=== PATIENT | male | born 1995 | race Two or more races ===

== ENCOUNTER 2024-11-29 17:12 | Emergency (ER) | payer MEDICAID ==
[~2024-11-29] VITALS: Ht 180.3 cm; Wt 84.6 kg
[2024-11-29 17:19] VITALS: TEMP 98.8
[2024-11-29 18:18] LABS: BASOPHILS % (AUTO) 0.9 % (0.0-2.0); EOSINOPHILS % (AUTO) 1.2 % (1.0-6.0); HEMOGLOBIN 15.4 g/dL (13.5-17.5); LYMPHOCYTES # (AUTO) 1.4 K/uL (1.0-4.8); MEAN CORPUSCULAR HEMOGLOBIN 30.9 pg (26.0-34.0); MEAN CORPUSCULAR HGB CONC 33.6 G/dL (31.0-37.0); MEAN CORPUSCULAR VOLUME 92 fL (80-100); MONOCYTES # (AUTO) 0.4 K/uL (0.1-1.0); MONOCYTES % (AUTO) 8.1 % (2.0-9.0); NEUTROPHILS # (AUTO) 2.8 K/uL (1.8-7.7); NEUTROPHILS % (AUTO) 59.8 % (40.0-70.0); PLATELET COUNT (AUTO) 199 K/uL (150-450); RED BLOOD CELL COUNT(AUTO) 4.99 MIL/uL (4.50-5.90); RED CELL DISTRIBUTION WIDTH 13.3 % (11.5-14.5); WHITE BLOOD COUNT (AUTO) 4.6 K/uL (4.5-11.0)
[2024-11-29 18:23] LABS: ANION GAP 8 mmol/L (8-16); CALCIUM, TOTAL 8.7 mg/dL (8.8-10.5); CARBON DIOXIDE 29 mmol/L (22-29); CHLORIDE 105 mmol/L (98-107); CREATININE 0.89 mg/dL (0.60-1.30); GLOMERULAR FILTR. RATE CALC > 60 mL/min (>60); GLUCOSE,RANDOM 92 mg/dL (70-110); POTASSIUM 4.3 mmol/L (3.5-5.1); SODIUM SERUM 142 mmol/L (136-145); UREA NITROGEN, BLOOD 11 mg/dL (7-18)
[2024-11-29] MEDS: IBUPROFEN 400 MG TABLET PO ONE (20:39)
[2024-11-29] MEDS: LORazepam 2 MG TABLET PO ONE (20:39)
[2024-11-29 21:27] VITALS: BP 120/69; PULSE 68; RESP 18; O2SAT 99
== END 2024-11-29 23:23 | disposition home or self-care (01) ==
LOC: EMS 17:12
DX: R53.83 Other fatigue (principal); J02.9 Acute pharyngitis, unspecified; R00.2 Palpitations; R07.89 Other chest pain
CPT/HCPCS: 80048; 85025; 93005; 99284